=== PATIENT | female | born 1985 | race Caucasian/White ===

== ENCOUNTER 2017-05-01 11:28 | Inpatient (IN) ==
[2017-05-01] MEDS ORDERED: CEFAZOLIN 1 G INJECTION IVP ONE (12:03)
[2017-05-01] MEDS ORDERED: FAMOTIDINE PB 20 MG/50 ML BAG IV ONE (12:03)
[2017-05-01] MEDS ORDERED: METOCLOPRAMIDE 10mg/2ml INJECTION IVP ONE (12:03)
[2017-05-01] MEDS ORDERED: CITRIC ACID/SODIUM CITRATE 30ml PO ONE (12:03)
--- NOTE | 2017-05-01 12:05 | Anesthesia Preoperative Report ---
Anesthesia Epidural/Spinal Rec - Date and Time Date: 05/01/17 Preoperative Diagnosis: Procedure: Plan: Spinal - Vital Signs /Para: G: P: - Medictaions & Allergies Allergies/Adverse Reactions: Allergies Allergy/AdvReac Type Severity Reaction Status Date / Time Sulfa (Sulfonamide Allergy Unknown Verified 10/13/16 12:37 Antibiotics) - Medical History Respiratory: DENIES: Asthma Cardiovascular: DENIES: Hypertension Gastrointestional: Reports: Gastroesophageal Reflux Disease DENIES: Ulcer Renal/Endocrine: DENIES: Diabetes Mellitus Type 1 Other History: Reports: Now (due date May 2017) - Surgical History Anesthesia Reactions: Nausea and Vomiting Hx Family Anesthesia Reaction: No History of Motion Sickness: No - Social History Smoking Status: Never smoker Second Hand Exposure: No Substance Use Type: does not use Alcohol Intake Frequency: does not drink Hx Chewing Tobacco Use: No - Pertinent Findings EKG Rhythm: Normal Sinus Rhythm - Physical Exam Respiratory Exam: lungs clear Cardiovascular Exam: regular rate and rhythm, no murmur - Airway Assessment Mallampati Score: III TMD: 3 Fingerbreadths Neck Extension: good - ASA ASA Score: 2 - Discussion Discussion: Discussed risks/options/alternatives of anesthesia and questions answered. Patient consents. Nursing pain assessment noted. Anesthesia Discussion: spouse Attestation Statement: Prior to the delivery of any anesthetic medication, I examined the patient, developed the plan, obtained the patient's consent and discussed the risk and benefits of the procedure with the patient/guardian.
[2017-05-01] MEDS ORDERED: PHENYLEPHRINE INJ 10 MG/ML VIAL IV ONE (12:19)
[2017-05-01] MEDS ORDERED: SALINE FLUSH 10ml SYRINGE ONE (12:19)
[2017-05-01] MEDS ORDERED: FentaNYL 100 MCG/2 ML INJECTION ONE (12:21)
[2017-05-01] MEDS ORDERED: MORPHINE SULFATE PF 5mg/10ml INJ (Duramorph) ONE (12:23)
[2017-05-01] MEDS ORDERED: CEFAZOLIN PREMIX (MC ONLY) 2 GM/50 ML BAG IV ONE (12:24)
[2017-05-01] MEDS: LR 1,000 ML IV SCH ×2 (12:30→13:04)
[2017-05-01] MEDS: OXYTOCIN BOLUS BAG 30 UNIT/500 ML ML IV SCH ×2 (13:09→14:13)
[2017-05-01] MEDS ORDERED: ONDANSETRON 4 MG/2 ML INJECTION ONE (13:33)
[2017-05-01] MEDS ORDERED: NOZIN NASAL SWAB NAS SCH (14:00)
[2017-05-01] MEDS ORDERED: OXYTOCIN DRIP 30 UNIT/500 ML ML IV SCH (14:12)
[2017-05-01] MEDS ORDERED: ACETAMINOPHEN 500 MG TABLET PO PRN (14:12)
[2017-05-01] MEDS ORDERED: D5LR 1,000 ML IV SCH (14:12)
[2017-05-01] MEDS ORDERED: Oxycodone/Acetaminophen 5/325 1 TAB PO PRN (14:12)
[2017-05-01] MEDS ORDERED: CALCIUM CARBONATE Chewable 500mg TABLET PO PRN (14:12)
[2017-05-01] MEDS ORDERED: SIMETHICONE 80 MG CHEWABLE TABLET PO PRN (14:12)
[2017-05-01] MEDS ORDERED: DiphenhydrAMINE 25 MG CAPSULE PO PRN (14:12)
[2017-05-01] MEDS ORDERED: HYDROCORTISONE 2.5% CREAM 30gm RECTALLY PRN (14:12)
[2017-05-01] MEDS ORDERED: NALOXONE 2 MG/2 ML INJECTION PFS IVP PRN (16:19)
[2017-05-01] MEDS ORDERED: DiphenhydrAMINE 50 MG/ML INJECTION IVP PRN (16:26)
--- NOTE | 2017-05-01 18:03 | Anesthesia Postoperative Note ---
- Date and Time Date: 05/01/17 Time: 18:02 - Status Patient Participated in Evaluation: Patient Participated in Person Respiratory Function: Airway Patent Mental Status: Alert and Oriented Pain Intensity: 0 Hydration: Taking PO Fluids Complications During Recover: None Apparent - Follow-Up Instructions Instructions: Per Surgeon
[2017-05-01] MEDS ORDERED: ONDANSETRON 4 MG/2 ML INJECTION IVP PRN (18:06)
[2017-05-01] MEDS: IBUPROFEN 800 MG TABLET PO PRN (18:10)
[2017-05-01] MEDS: HYDROMORPHONE 2 MG TABLET PO PRN (18:11)
[2017-05-01] MEDS: SIMETHICONE 80 MG CHEWABLE TABLET PO SCH ×2 (19:23→22:01)
--- NOTE | 2017-05-01 20:41 | Operative Note ---
Operative Note - Date of Operation Date of Operation: 05/01/17 - General : 1 - Preoperative Diagnosis Preoperative Diagnosis: Labor Breech - Postoperative Diagnosis same as preoperative - Procedure Primary - Surgeon Surgeon: Truong Darling DO - Watch Leader OB Watch Leader: Hilda Mendoza MD - Anesthesia Anesthesia Provider: Piotr Elder CRNA Anesthesia Type: Spinal - Estimated Blood Loss Estimated Blood Loss:: 500 - Findings Findings: viable male - APGARS : 899 - Morris Weight Weight (grams): 3118 - Morris Name Morris Name: Sherine - Indications Indications: Labor and breech presentation.
[2017-05-02] MEDS: HYDROMORPHONE 2 MG TABLET PO PRN (05:24)
[2017-05-02] MEDS: IBUPROFEN 800 MG TABLET PO PRN ×2 (09:58→17:31)
--- NOTE | 2017-05-02 12:49 | OB/GYN Progress Note ---
OB-PP Progress Note - General POD:: POD1 Maternal Group B Strep: Negative Maternal blood type: O+ Maternal Rubella Status: Immune - Subjective Date: 05/02/17 Lochia: Minimal Pain: controlled Voiding: voiding Nausea or Vomiting Present: No - Objective Vital Signs: Last Vital Signs Temp 97.5 F 05/02/17 01:40 Pulse 70 05/02/17 05:00 Resp 16 05/02/17 05:00 BP 137/69 05/02/17 05:00 Pulse Ox 100 05/02/17 05:00 Abdomen: fundus firm, non-tender Incision: dry, dressed Extremities: non-tender Laboratory: Laboratory Results - last 24 hr 05/01/17 05/02/17 12:12 07:04 WBC 20.7 H D RBC 3.90 L Hgb 11.7 L Hct 35.6 L MCV 91.3 MCH 30.0 MCHC 32.9 RDW Std Deviation 43.8 Plt Count 235 MPV 10.8 Blood Type O Positive Antibody Screen Negative - Assessment Assessment: SP, Primary C/S - Plan Plan: routine care
[2017-05-02] MEDS: DOCUSATE CALCIUM 240 MG CAPSULE PO SCH (17:30)
[2017-05-02] MEDS: SIMETHICONE 80 MG CHEWABLE TABLET PO SCH (17:31)
[2017-05-03] MEDS: IBUPROFEN 800 MG TABLET PO PRN ×2 (02:42→12:33)
[2017-05-03 06:52] VITALS: O2SAT 98
--- NOTE | 2017-05-03 07:38 | OB/GYN Progress Note ---
OB-PP Progress Note - General PPD2 POD:: POD2 Maternal Group B Strep: Negative Maternal blood type: O+ Maternal Rubella Status: Immune - Subjective Date: 05/03/17 Lochia: Minimal Pain: controlled Voiding: voiding Nausea or Vomiting Present: No - Objective Vital Signs: Last Vital Signs Temp 97.9 F 05/03/17 06:39 Pulse 68 05/03/17 06:39 Resp 20 05/03/17 06:39 BP 142/80 H 05/03/17 06:39 Pulse Ox 98 05/03/17 06:39 General: alert and oriented Respiratory: non-labored Abdomen: fundus firm, non-tender Incision: normal, clean, dry, intact Extremities: non-tender Edema: none Laboratory: Laboratory Results - last 24 hr 05/02/17 07:04 WBC 20.7 H D RBC 3.90 L Hgb 11.7 L Hct 35.6 L MCV 91.3 MCH 30.0 MCHC 32.9 RDW Std Deviation 43.8 Plt Count 235 MPV 10.8 - Assessment Assessment: SP, Primary C/S - Plan Plan: routine care, discharge home
[2017-05-03] MEDS: SIMETHICONE 80 MG CHEWABLE TABLET PO SCH ×3 (08:45→12:34)
[2017-05-03] MEDS: DOCUSATE CALCIUM 240 MG CAPSULE PO SCH (08:47)
--- NOTE | 2017-05-03 11:06 | Operative Note ---
DATE OF OPERATION 05/01/2017 PREOPERATIVE DIAGNOSES 1. Single live intrauterine . 2. Breech presentation. 3. Labor. POSTOPERATIVE DIAGNOSES 1. Single live intrauterine . 2. Breech presentation. 3. Labor. 4. Delivered. PROCEDURE Primary low transverse section via Pfannenstiel incision. SURGEON Dr. Truong Darling PRIMARY CARE PHYSICIAN Dr. Hilda Mendoza ANESTHESIA PROVIDER Piotr Elder CRNA ANESTHESIA TYPE Spinal. ESTIMATED BLOOD LOSS 500 ml. FINDINGS Viable male infant in breech presentation. Apgars 8/9. Weight 3,118 grams. Name: Sherine Hernandez. INDICATIONS FOR PROCEDURE Labor and breech presentation. DESCRIPTION OF PROCEDURE The patient is a G1, P0 who presented to [facility] with regular active painful contractions in the breech presentation. Risks, benefits and alternatives to procedure were discussed including infection, injury to bowel, bladder and , bleeding with the need for a transfusion, need for a second operation and . Questions were elicited and answered and the patient was taken to the operating room. DESCRIPTION OF PROCEDURE The patient was taken to the operating room where spine anesthesia was found to be adequate. She was then prepped and draped in the dorsal supine position with a leftward tilt. Pfannenstiel skin incision was made and carried through the underlying layers to the fascia. The fascia was then incised in the midline and the fascial incision was then extended laterally with the Navarrete scissors. At this time the superior aspect of the fascial incision was grasped with a Rosendo clamp, elevated and the rectus muscle dissected off sharply with the Navarrete scissors. Attention was turned to the inferior aspect of the fascial incision which was grasped with a Rosendo clamp, elevated, and the rectus muscle dissected off sharply. The rectus muscle was in the midline bluntly and then peritoneum was entered sharply with the Metzenbaum scissors. The peritoneal incision was then extended superiorly and inferiorly with good visualization of the bladder. The bladder blade was inserted and the vesicouterine peritoneum was identified, grasped with the pickups, elevated and entered sharply. This incision was then extended laterally and the bladder flap was created digitally. The bladder blade was then reinserted and the uterine incision was made in a transverse fashion. Clear amniotic fluid was noted and the was delivered in the breech presentation. The cord was clamped and cut and the was given to the literature professor who was waiting. At this time the uterus was exteriorized, cleared of all clot and debris and the uterine incision was repaired with 0 Monocryl in a running locked fashion. A second layer of the same suture was used in an imbricating fashion to obtain excellent hemostasis. At this time the bladder flap was repaired with 3-0 Monocryl in a running fashion. Excellent hemostasis was noted. The uterus was returned to the abdomen. The gutters were cleared of all clot and debris and the peritoneal incision was repaired in a running fashion with 3-0 Monocryl. At this time the rectus muscles were reapproximated with 3-0 Monocryl in a loose [id number] fashion. Fascia was closed with 0 Vicryl in a running fashion. Subcutaneous layer was closed with 2-0 plain gut and the skin was closed with 4-0 Monocryl and Dermabond. The patient tolerated the procedure well. Sponge, lap and needle counts were correct x 2 and the patient was taken to recovery room in stable condition. W[place]EN
[2017-05-03 12:55] VITALS: BP 143/96; PULSE 82; RESP 18; TEMP 97.7
== END 2017-05-03 14:40 | disposition home or self-care (01) | DRG 766 ==
LOC: MC 11:28 → OBOBS 11:28 → MC 12:03
PROVIDERS: ADMIT Obstetrics & Gynecology; ATTEND Obstetrics & Gynecology